=== PATIENT | female | born 1965 | race Caucasian/White ===

== ENCOUNTER 2018-04-03 11:09 | Outpatient (REF) | payer OTHER, SELFPAY ==
--- NOTE | 2018-04-03 15:00 | PAPFT_PTH ---
PATIENT: Angela Ray LOC: [facility] U#:[id number] AGE/SX: 52/F ROOM: RE04/03/[address]: Luann Burden MD : 1965 BED: DIS: 04/03/2018 SPEC #: [id number] RECD: 04/04/18 12:48 STATUS: IRWIN REFederico #: [id number] GUILLAUME: 04/03/18 15:[address]: Luann Burden DEPT: [facility] Cytology RECD BY: Nory Navas Tissues: 1 - CX/ENDOCX FOR PAP SMEARS Procedures: PAP THIN PREP/UVM Screening HPV DNA PROBE Comments: [id number]
== END 2018-04-03 11:10 ==
LOC: LBN 11:09
PROVIDERS: PCP Internal Medicine; Visit Provider Internal Medicine
DX: Z12.4 Encounter for screening for malignant neoplasm of cervix (principal); Z11.51 Encounter for screening for human papillomavirus (HPV)
CPT/HCPCS: 88142; 87624

== ENCOUNTER 2018-04-15 00:08 | Outpatient (CLI) | payer OTHER, SELFPAY ==
--- NOTE | 2018-04-15 08:30 | ETT_ITS ---
*[facility]* *[facility]* [address] [place] [address] Stress Electrocardiography Santi protocol Date of study: 04/15/2018 *PATIENT PRESENTATION* Height: 147.3cm (58in) Blood Pressure: Weight: 53.2kg (117lb) BSA: 1.49m^2 Ordering physician: Kandy Amado Impressions: Normal study after maximal exercise. Summary: 1. Stress ECG conclusions: The stress ECG is negative. David treadmill score: 10. This score predicts a low risk of cardiac events. 2. Stress: The target heart rate was achieved. The heart rate response to stress is normal. There is a normal resting blood pressure with an appropriate response to stress. The patient experienced no chest pain during stress. Exercise capacity is normal for age. Indication: R07.9. History: Patient's presenting symptoms: asymptomatic. Risk factors: REASON FOR VISIT: PATIENT PRESENTED TO THE EMERGENCY ROOM 03/18/18 WITH REPORTS OF HEAVY LEFT SIDED CHEST AND UPPER BACK PAIN RADIATING INTO THE LEFT ARM AND WITH ASSOCIATED SHORTNESS OF BREATH. PAIN HAD OCCURED TWO DAYS PRIOR AT NIGHT AND RESOLVED BY MORNING. PAIN WAS NONEXERTIONAL IN NATURE. PATIENT PERSONAL STRESSORS INCLUDE INCREASED WORKLOAD, WORKING OVERTIME DURING BOTH DAY AND NIGHT SHIFTS. PAST MEDICAL HISTORY: HYPERLIPIDEMIA. FAMILY HISTORY: MOTHER FROM MYOCARDIAL INFARCTION. FATHER HAD DIABETES. SMOKING STATUS: NEVER SMOKER. EXERCISE ROUTINE: WALKING AND AEROBIC EXERCISES 5X/WEEK. Family history of coronary artery disease. Dyslipidemia. Cholesterol: 247mg/dl. HDL: 96mg/dl. LDL: 131mg/dl. Triglycerides: 172mg/dl. ALLERGIES: FRESH FRUITS AND VEGETABLES, POLLEN EXTRACTS. MEDICATIONS: ASCORBIC ACID/COLLAGEN HYDR 4 CAPSULES, DAILY. DIPHENHYDRAMINE HCL 25MG, PRN. IBUPROFEN 200MG, PRN. MULTIVITAMIN, DAILY. Protocol: Santi protocol. Baseline ECG: SINUS RHYTHM. HEART RATE 74 BPM. INVERTED T WAVE IN LEADS AVL AND V1. Stress protocol: + +---+ + !Stage !HR !BP (mmHg) ! + +---+ + !Baseline supine !74 !112/74 (87) ! + +---+ + !Baseline standing !75 !130/84 (99) ! + +---+ + !Stage I; 1.7mph, 10degrees; 3 min !124!112/72 (85) ! + +---+ + !Stage II; 2.5mph, 12degrees; 3 min !150!132/74 (93) ! + +---+ + !Stage III; 3.4mph, 14degrees; 3 min!158!164/88 (113)! + +---+ + !Peak stress !162! ! + +---+ + !Immediate post stress !146!162/70 (101)! + +---+ + !Recovery; 3 min !103!134/70 (91) ! + +---+ + !Recovery; 6 min !103!122/68 (86) ! + +---+ + * Stress results: Maximal heart rate during stress was 162bpm (98% of maximal predicted heart rate). The maximal predicted heart rate was 166bpm. The target heart rate was achieved. The heart rate response to stress is normal. There is a normal resting blood pressure with an appropriate response to stress. The rate-pressure product for the peak heart rate and blood pressure was 91834cc Hg/min. The patient experienced no chest pain during stress. Exercise capacity is normal for age. Stress ECG: TREADMILL PORTION OF EXERCISE STRESS TEST ENDED IN 10MIN 1 SEC DUE TO PATIENT FATIGUE. APPROPRIATE HEART RATE AND BLOOD PRESSURE RESPONSE TO EXERCISE. MAX HEART RATE 162 BPM, 97% OF TARGET. APPROXIMATE METS ACHIEVED 11.83. NO ANGINA REPORTED. NO ECTOPY NOTED. UPSLOPING ST SEGMENT DEPRESSION NOTED IN LEADS II, III, AVF, V3, V4, AND V5 BEGINNING IN STAGE 2. ST SEGMENTS RETURNED TO BASELINE BY MINUTE 2 OF RECOVERY STAGE. ABOVE AVERAGE FUNCTIONAL CAPACITY FOR EXERCISE. TREADMILL ERROR OCCURED DURING TESTING AT 2:30 FOR APPROXIMATELY 1 MINUTE. TREADMILL RESTARTED AT ABOUR 3:30 AT STAGE 2. TEST WAS CONTINUED WITHOUT ERROR FROM THIS POINT FORWARD. The stress ECG is negative. David treadmill score: 10. This score predicts a low risk of cardiac events. Study data: Colt Floyd MD supervised and was readily available during the procedure. This study was interpreted by [facility]. Study status: Routine. Consent: The risks, benefits, and alternatives to the procedure were explained to the patient and informed consent was obtained. Procedure: Initial setup. A baseline ECG was recorded. Surface ECG leads and manual cuff blood pressure measurements were monitored. Heart sounds: Normal. Lung sounds: Normal. Treadmill exercise testing was performed using the Santi protocol. Study completion: The patient tolerated the procedure well and was discharged from the lab. Discharge: The patient left the laboratory in stable condition. Birthdate: Patient birthdate: 1965. Sex: Gender: female. Study date: Study date: 04/15/2018. Study time: 08:30 AM. Electronically signed by Colt Floyd MD 04/15/2018 08:54
== END 2018-04-15 00:09 ==
PROVIDERS: PCP Internal Medicine; Visit Provider Nurse Practitioner Family
DX: R07.89 Other chest pain (principal); R06.02 Shortness of breath; E78.5 Hyperlipidemia, unspecified; Z82.49 Family history of ischemic heart disease and other diseases of the circulatory system
CPT/HCPCS: 93017

== ENCOUNTER 2018-04-23 00:29 | Outpatient (CLI) | payer OTHER, SELFPAY ==
--- NOTE | 2018-04-23 07:58 | DI.MAMMO_ITS ---
SYMPTOM/DIAGNOSIS: SCREENING, Z12.31 MAMMOGRAM: 04/23/18 Mammograms were interpreted according to the usual protocol including computer analysis with CAD system, tomosynthesis and C view imaging. The breasts are of moderate density with fairly symmetrical distribution of fibroglandular tissue. No dominant mass or clumped microcalcification identified in either breast. The current examination is compared with previous examinations including Jun 2015 and there has been no gross interval change in appearance in comparison with the previous studies. CONCLUSION: No specific evidence of malignancy at this time. Routine screening examinations are suggested at yearly intervals in this age group according to the ACS/ACR guidelines. Category 1, breast density category B. MQSA ASSESSMENT OF FINDINGS: Negative. Category 1. Patient will receive a letter notifying them of these results. BI-RADS category B. There are scattered areas of fibroglandular density.
== END 2018-04-23 00:49 ==
PROVIDERS: PCP Internal Medicine; Visit Provider Internal Medicine
DX: Z12.31 Encounter for screening mammogram for malignant neoplasm of breast (principal)
CPT/HCPCS: 77063; 77067

== ENCOUNTER 2020-06-18 03:23 | Outpatient (CLI) | payer OTHER, SELFPAY ==
--- NOTE | 2020-06-18 08:00 | DI.MAMMO_ITS ---
EXAM: MG MAMMO SCREENING CLINICAL HISTORY: screening,Z12.39 TECHNIQUE: Mammograms were interpreted according to the usual protocol including computer analysis w [employer] CAD system, tomosynthesis and C-view imaging. COMPARISON: FINDINGS: The breasts are heterogeneously dense. No dominant mass or clumped microcalcification is identified in either breast. The current examination is compared with previous examinations including April 2018 and there has been no gross interval change in appearance in comparison with the prior studies. IMPRESSION: No specific evidence of malignancy at this time. Routine screening examinations are suggested at yea rly intervals in this age group according to the ACS ACR guidelines. BI-RADS Category 1 - Negative Breast Density - Category C - Heterogeneously dense
== END 2020-06-18 03:43 ==
PROVIDERS: PCP Internal Medicine; Visit Provider Internal Medicine
DX: Z12.31 Encounter for screening mammogram for malignant neoplasm of breast (principal)
CPT/HCPCS: 77063; 77067

== ENCOUNTER 2021-11-17 04:11 | Outpatient (CLI) | payer OTHER, SELFPAY ==
[2021-11-17 08:13] LABS: Glucose 96 mg/dL (74-106)
[2021-11-17 14:06] LABS: Calculated LDL 191 mg/dL (<100); Cholesterol 304 mg/dL (<200); HDL Cholesterol 92 mg/dL (40-60); Triglyceride 107 mg/dL (<150)
[2021-11-18 10:20] LABS: HIV-1/2 Ag & Ab Screen Negative (Negative)
[2021-11-18 10:36] LABS: Hepatitis C Ab w Rflx HCV PCR Negative (Negative)
== END 2021-11-17 04:12 | disposition home or self-care (01) ==
LOC: LBO 04:11
PROVIDERS: PCP Internal Medicine; Visit Provider Internal Medicine
DX: Z83.3 Family history of diabetes mellitus (principal); Z13.220 Encounter for screening for lipoid disorders; Z11.4 Encounter for screening for human immunodeficiency virus [HIV]; Z11.59 Encounter for screening for other viral diseases
CPT/HCPCS: 36415; 80061; 82947; 86803; 87389

== ENCOUNTER 2023-05-14 09:13 | Outpatient (REF) | payer BC, SELFPAY ==
--- NOTE | 2023-05-14 08:45 | PAPFT_PTH ---
PATIENT: Angela Ray LOC: [facility] U#:[id number] AGE/SX: 57/F ROOM: RE05/14/[address]: Ana M Richey APRN : 1965 BED: DIS: 05/14/2023 SPEC #: [id number] RECD: 05/14/23 18:00 STATUS: IRWIN REQ #: [id number] GUILLAUME: 05/14/23 08:[address]: Ana M Richey DEPT: [facility] Cytology RECD BY: Nory Navas Tissues: 1 - CX/ENDOCX FOR PAP SMEARS Procedures: PAP THIN PREP/UVM Screening HPV DNA PROBE Comments: [id number]
== END 2023-05-14 09:14 | disposition home or self-care (01) ==
LOC: LBO 09:13
PROVIDERS: PCP Nurse Practitioner Adult Health; Visit Provider Nurse Practitioner Adult Health
DX: Z12.4 Encounter for screening for malignant neoplasm of cervix (principal); Z11.51 Encounter for screening for human papillomavirus (HPV)
CPT/HCPCS: 88142; 87624

== ENCOUNTER → 2023-05-28 03:03 | Outpatient (CLI) | payer BC, SELFPAY ==
--- NOTE | 2023-05-28 08:00 | DI.MAMMO_ITS ---
Exam(s) MAMMO SCREENING EXAM: MAMMO SCREENING CLINICAL HISTORY: screening,z12.39 TECHNIQUE: Mammograms were interpreted according to the usual protocol including computer analysis w [employer] CAD system, tomosynthesis and C-view imaging. COMPARISON: 2012 through 2019 FINDINGS: The breasts are composed of heterogeneously dense fibroglandular densities, Breast Density category C . No suspicious masses or suspicious microcalcifications are seen. No skin thickening or abnormal axillary lymph nodes are seen. There has been no significant change from prior exams. IMPRESSION: BI-RADS Category 1, Negative mammogram. Yearly screening mammography is recommended. Breast Density Category C, heterogeneously Dense. The mammogram demonstrates the patient's breast tissue is dense. Dense breast tissue is very common a nd is not abnormal but dense breast tissue can make it harder to find cancer on a mammogram. Also, de nse breast tissue may increase breast cancer risk. This information about the result of the mammogram report was provided to the patient to raise their awareness. Use this report when you speak with the patient about their risks for breast cancer, which includes their family history. At that time, you may recommend additional screening tests (Ultrasound or MRI) as they might be useful based on their r isk. A negative radiographic report should not delay biopsy if a dominant or clinically suspicious mass is present. Up to ten percent of cancers are not identified on mammography. A negative report may reinforce clinical impression. Adenosis and dense breasts may obscure an underlying neoplasm. False positive reports average 6 to 10%.
== END ==
PROVIDERS: PCP Nurse Practitioner Adult Health; Visit Provider Nurse Practitioner Adult Health
DX: Z12.31 Encounter for screening mammogram for malignant neoplasm of breast (principal)
CPT/HCPCS: 77063; 77067

== ENCOUNTER 2024-06-05 03:06 | Outpatient (CLI) | payer BC, SELFPAY ==
[2024-06-05 08:49] LABS: Anion Gap 8.3 mmol/L (3-11); BUN 18 mg/dL (7-18); CO2 28.7 mmol/L (21.0-32.0); CREATININE 0.8 mg/dL (0.55-1.02); Calcium 9.7 mg/dL (8.5-10.1); Calculated LDL 153 mg/dL (<100); Chloride 105 mmol/L (98-107); Cholesterol 259 mg/dL (<200); Glucose 120 mg/dL (74-106); HDL Cholesterol 88 mg/dL (40-60); Potassium 4.5 mmol/L (3.5-5.1); Sodium 142 mmol/L (136-145); Triglyceride 93 mg/dL (<150)
== END 2024-06-05 03:07 | disposition home or self-care (01) ==
LOC: LBO 03:07
PROVIDERS: PCP Nurse Practitioner Adult Health; Visit Provider Nurse Practitioner Adult Health
DX: Z83.3 Family history of diabetes mellitus (principal); Z13.1 Encounter for screening for diabetes mellitus; Z13.220 Encounter for screening for lipoid disorders
CPT/HCPCS: 36415; 80048; 80061

== ENCOUNTER → 2025-07-15 01:13 | Outpatient (CLI) | payer OTHER, SELFPAY ==
--- NOTE | 2025-07-15 08:10 | DI.MAMMO_ITS ---
Exam(s) MAMMO SCREENING EXAM: MAMMO SCREENING CLINICAL HISTORY: screening,z12.39 TECHNIQUE: Bilateral full field digital CC and MLO mammographic images were obtained with 3D tomosynthesis and utilizing computer aided detection (CAD). COMPARISON: Comparison is made with prior examinations. FINDINGS: Masses/Architectural Distortion: No suspicious masses or areas of architectural distortion are present. Microcalcifications: No suspicious pleomorphic-type are seen. Skin Thickening/Nipple Retraction: None. IMPRESSION: 1. No significant interval change with no specific features of malignancy noted. 2. Unless there is more urgent need, screening mammography is recommended, as per [employer] guidelines. BI-RADS Category 1 - Negative Breast Density - Category C - The breast are heterogeneously dense, which may obscure small masses. Breast density Category C or D implies that the patient has dense breast tissue. Dense breast tissue can make it harder to find cancer on a mammogram. Dense breast tissue is also associated with an increased risk of breast cancer. This information about the result of the mammogram report was provided to the patient to raise their awareness. Use this report when you speak with the patient about their risks for breast cancer, which includes their family history. At that time, you may recommend additional screening tests (Ultrasound or MRI) as these tests may add significant information. A negative radiographic report should not delay biopsy if a dominant or clinically suspicious mass is present. Up to ten percent of cancers are not identified on mammography. A negative report may reinforce clinical impression. Adenosis and dense breasts may obscure an underlying neoplasm. False positive reports average 6 to 10%. Patient will receive a letter notifying them of these results.
== END ==
PROVIDERS: PCP Nurse Practitioner Adult Health; Visit Provider Nurse Practitioner Adult Health
DX: Z12.31 Encounter for screening mammogram for malignant neoplasm of breast (principal)
CPT/HCPCS: 77063; 77067